=== PATIENT | female | born 1995 | race Caucasian/White ===

== ENCOUNTER 2017-03-14 14:21 | Inpatient (IN) | payer OTHER ==
[2017-03-14 14:55] LABS: BILIRUBIN NEGATIVE (NEGATIVE); BLOOD TRACE-INTACT Ery/uL (NEGATIVE); CLARITY CLEAR (CLEAR); COLOR YELLOW (YELLOW); GLUCOSE (U) NORMAL (NORMAL); KETONE (U) NEGATIVE (NEGATIVE); LEUKOCYTES NEGATIVE Leu/uL (NEGATIVE); NITRITE NEGATIVE (NEGATIVE); PROTEIN NEGATIVE (NEGATIVE); UROBILINOGEN 0.2 mg/dL (0.2-1.0)
[2017-03-14 14:59] LABS: BACTERIA TRACE; URINARY WBC RARE
[2017-03-14 16:39] LABS: HCT 34.9 % (37.0-47.0); HGB 11.4 g/dl (12.5-16.0); MCH 24.3 pg (25.0-31.0); MCHC 32.7 g/dL (32.0-36.0); MCV 74.4 fL (78.0-100.0); PLT 172 K/uL (150-400); RBC 4.69 M/uL (4.20-5.40); RDW 16.3 % (11.5-14.0); WBC 17.3 K/uL (4.0-10.5)
[2017-03-15 07:12] LABS: HCT 31.2 % (37.0-47.0); MCH 24.3 pg (25.0-31.0); MCHC 32.1 g/dL (32.0-36.0); MCV 75.9 fL (78.0-100.0); PLT 156 K/uL (150-400); RBC 4.11 M/uL (4.20-5.40); RDW 16.2 % (11.5-14.0); WBC 13.8 K/uL (4.0-10.5)
== END 2017-03-16 18:46 | disposition home or self-care (01) | DRG 775 ==
LOC: FOB 14:21 → FOD 14:21 → FOB 15:40 → FOD 20:54 → FOB 20:54 → FOD 20:55 → FOB 20:55
PROVIDERS: ADMIT Obstetrics & Gynecology
PROC: 10E0XZZ Delivery of Products of Conception, External Approach (ICD-10-PCS; principal; 2017-03-14)
PROC: 4A1HX4Z Monitoring of Products of Conception, Cardiac Electrical Activity, External Approach (ICD-10-PCS; 2017-03-14)
PROC: 10907ZC Drainage of Amniotic Fluid, Therapeutic from Products of Conception, Via Natural or Artificial Opening (ICD-10-PCS; 2017-03-14)
DX: O99.824 Streptococcus B carrier state complicating childbirth (principal); D62 Acute posthemorrhagic anemia; E66.9 Obesity, unspecified; Z3A.39 39 weeks gestation of pregnancy; Z37.0 Single live birth; O43.123 Velamentous insertion of umbilical cord, third trimester; O99.02 Anemia complicating childbirth; D64.9 Anemia, unspecified; O99.214 Obesity complicating childbirth; D50.9 Iron deficiency anemia, unspecified; O09.30 Supervision of pregnancy with insufficient antenatal care, unspecified trimester
CPT/HCPCS: 36415; 81001; 88307; J2300; J2540